=== PATIENT | male | born 1935 | race Caucasian/White ===

== ENCOUNTER 2019-01-16 08:04 | Observation (INO) | payer MEDICARE, OTHER ==
[2019-01-16] MEDS ORDERED: ALBUTEROL SULFATE 0.083% NEB 2.5 MG/3 ML AMPUL NEB ONE (08:13)
[2019-01-16] MEDS ORDERED: IPRATROPIUM BROMIDE 0.02% NEB 0.5 MG/2.5 ML AMPUL NEB ONE (08:14)
[2019-01-16 08:28] LABS: ABSOLUTE MONOCYTES (AUTO) 0.2 10^3/uL (0.1-1.4); ABSOLUTE NEUT (AUTO) 6.5 10^3/uL (1.7-8.2); BASOPHILS % (AUTO) 0.4 % (0-2); EOSINOPHILS % (AUTO) 0.2 % (0-6); HEMATOCRIT 37.6 % (37.9-51.0); HEMOGLOBIN 12.6 g/dL (13.5-17.0); LYMPHOCYTES % (AUTO) 12.8 % (13-45); MEAN CORPUSCULAR HEMOGLOBIN 30.8 pg (27.0-33.4); MEAN CORPUSCULAR HGB CONC 33.6 g/dL (32.0-36.0); MEAN CORPUSCULAR VOLUME 92 fl (80-97); MONOCYTES % (AUTO) 3.2 % (3-13); PLATELET COUNT 138 10^3/uL (150-450); RED CELL DISTRIBUTION WIDTH 13.7 % (11.5-14.0); SEGMENTED NEUTROPHILS % (AUTO) 83.4 % (42-78); TOTAL CELLS COUNTED % (AUTO) 100 %; WHITE BLOOD COUNT 7.8 10^3/uL (4.0-10.5)
[2019-01-16 08:34] LABS: VENOUS BLOOD BASE EXCESS -2.2 mmol/L; VENOUS BLOOD HCO3 26.9 mmol/L (20-32); VENOUS BLOOD PH 7.22 (7.30-7.42)
[2019-01-16] MEDS ORDERED: FUROSEMIDE INJ/PF 40 MG/4 ML SDV IV ONE (08:34)
[2019-01-16 08:36] LABS: VENOUS BLOOD PCO2 66.7 mmHg (35-63)
[2019-01-16 08:55] LABS: ALKALINE PHOSPHATASE 122 U/L (38-126); ANION GAP 8 (5-19); ASPARTATE AMINO TRANSFERASE 45 U/L (17-59); BILIRUBIN,DIRECT 0.3 mg/dL (0.0-0.4); BILIRUBIN,TOTAL 0.3 mg/dL (0.2-1.3); BLOOD UREA NITROGEN 14 mg/dL (7-20); CALCIUM 8.8 mg/dL (8.4-10.2); CARBON DIOXIDE 28 mmol/L (22-30); CHLORIDE 103 mmol/L (98-107); CREATINE KINASE 149 U/L (55-170); GLUCOSE 172 mg/dL (75-110); POTASSIUM 5.1 mmol/L (3.6-5.0); TOTAL PROTEIN 7.1 g/dL (6.3-8.2)
[2019-01-16 09:08] LABS: CREATINE KINASE MB 4.14 ng/mL (<4.55)
[2019-01-16 09:16] LABS: TROPONIN I 0.446 ng/mL
[2019-01-16] MEDS ORDERED: ASPIRIN 325 MG TABLET PO ONE (09:25)
--- NOTE | 2019-01-16 09:30 | ER Document Report ---
ED General - General Chief Complaint: Shortness Of Breath Stated Complaint: DIFFICULTY BREATHING Time Seen by Provider: 01/16/19 08:09 - HPI Notes: Patient presents with onset of shortness of breath that started last night. He was seen by EMS and provided albuterol treatment and felt better and then this morning felt worse so came to the hospital. He denies any chest pain recent cough congestion fevers or illnesses. His daughter at bedside states that he is not taking his furosemide because he ran out for several days. He does have a history of CHF, COPD, and kidney disease - Related Data Allergies/Adverse Reactions: pseudoephedrine [From Sudafed] Allergy (Verified 01/16/19 08:25) Past Medical History - Social History Smoking Status: Former Smoker Family History: Reviewed & Not Pertinent Patient has suicidal ideation: No Patient has homicidal ideation: No Pulmonary Medical History: Reports: Hx COPD Review of Systems - Review of Systems Constitutional: No symptoms reported EENT: No symptoms reported Cardiovascular: No symptoms reported Respiratory: See HPI Gastrointestinal: No symptoms reported Genitourinary: No symptoms reported Male Genitourinary: No symptoms reported Musculoskeletal: No symptoms reported Skin: No symptoms reported Hematologic/Lymphatic: No symptoms reported Neurological/Psychological: No symptoms reported Physical Exam - Vital signs Vitals: Resp Pulse Ox 20 94 01/16/19 08:11 01/16/19 08:11 - General General appearance: Other - Mild distress - HEENT Head: Normocephalic, Atraumatic - Respiratory Respiratory status: Respiratory distress - Coarse breath sounds bilaterally - Cardiovascular Rhythm: Tachycardia Heart sounds: Normal auscultation - Abdominal Inspection: Normal Distension: Other - Obese abdomen with reducible umbilical hernia - Extremities General upper extremity: Normal inspection General lower extremity: Other - No bilateral pitting edema - Neurological Neuro grossly intact: Yes Cognition: Normal Orientation: AAOx4 Course - Re-evaluation Re-evalutation: 01/16/19 09:[address] Parikh due to elevated troponin. Patient does have a history of CHF no baseline labs in this EMR. He does not have any chest pain. I contacted at this time and stated that patient can be admitted he can be consulted if necessary aspirin provided 01/16/19 09:41 Patient will be admitted at this time - Vital Signs Vital signs: Temp Pulse Resp BP Pulse Ox 98.1 F 99 20 148/61 H 92 01/17/19 11:46 08/30/19 11:46 01/17/19 11:46 01/17/19 11:46 01/17/19 11:46 - Laboratory Result Diagrams: 01/17/19 05:33 01/17/19 05:33 Laboratory results interpreted by me: 01/16/19 01/16/19 01/16/19 08:12 08:12 08:12 RBC 4.10 L Hgb 12.6 L Hct 37.6 L Plt Count 138 L Lymph % (Auto) 12.8 L Seg Neutrophils % 83.4 H VBG pH VBG pCO2 Potassium 5.1 H Creatinine 1.36 H Est GFR (MDRD) Non-Af 50 L Glucose 172 H NT-Pro-B Natriuret Pep 820 H Urine Protein Urine Blood 01/16/19 01/16/19 08:12 09:34 RBC Hgb Hct Plt Count Lymph % (Auto) Seg Neutrophils % VBG pH 7.22 L VBG pCO2 66.7 H* Potassium Creatinine Est GFR (MDRD) Non-Af Glucose NT-Pro-B Natriuret Pep Urine Protein 30 H Urine Blood SMALL H Discharge - Discharge Clinical Impression: Shortness of breath, COPD exacerbation Condition: Stable Disposition: ADMITTED INPATIENT Admitting Provider: Santa (Hospitalist) Unit Admitted: Telemetry
--- NOTE | 2019-01-16 09:34 | RADIOLOGY REPORT (SQ) ---
EXAM DESCRIPTION: CHEST SINGLE VIEW COMPLETED DATE/TIME: 01/16/2019 8:50 am REASON FOR STUDY: bed 4 db COMPARISON: None. EXAM PARAMETERS: NUMBER OF VIEWS: One view. TECHNIQUE: Single frontal radiographic view of the chest acquired. RADIATION DOSE: NA LIMITATIONS: None. FINDINGS: LUNGS AND PLEURA: No opacities, masses or pneumothorax. Probable emphysematous change. N o pleural effusion. MEDIASTINUM AND HILAR STRUCTURES: No masses. Contour normal. HEART AND VASCULAR STRUCTURES: Cardiomegaly. BONES: No acute findings. HARDWARE: None in the chest. OTHER: No other significant finding. IMPRESSION: Cardiomegaly. Probable emphysematous change without acute abnormality of the lungs. No focal airspace opacity. TECHNICAL DOCUMENTATION: JOB ID: [id number] [id number] [id number] you- All Rights Reserved Reading location - IP/workstation name: [email or web address]
[2019-01-16] MEDS ORDERED: LEVOFLOXACIN 750 MG TABLET PO ONE (09:41)
[2019-01-16 09:50] LABS: APPEARANCE,URINE CLEAR; BILIRUBIN,URINE NEGATIVE (NEGATIVE); COLOR,URINE YELLOW; GLUCOSE, URINE NEGATIVE (NEGATIVE); KETONES,URINE NEGATIVE (NEGATIVE); LEUKOCYTE ESTERASE,URINE NEGATIVE (NEGATIVE); NITRITE,URINE NEGATIVE (NEGATIVE); PROTEIN,URINE 30 mg/dL (NEGATIVE); URINE SPECIFIC GRAVITY 1.013; UROBILINOGEN,URINE NEGATIVE mg/dL (<2.0)
[2019-01-16] MEDS ORDERED: LEVALBUTEROL HCL NEB 1.25 MG/3 ML AMPUL NEB PRN (10:24)
[2019-01-16] MEDS ORDERED: PROMETHAZINE HCL INJ 25 MG/1 ML VIAL IV PRN (10:24)
[2019-01-16] MEDS ORDERED: ACETAMINOPHEN 325 MG TABLET PO PRN (10:24)
[2019-01-16] MEDS ORDERED: MAG HYDROX/AL HYDROX/SIMETH SUSP 30 ML UDCUP PO PRN (10:24)
[2019-01-16] MEDS ORDERED: ONDANSETRON HCL INJ/PF 4 MG/2 ML SDV IV PRN (10:24)
[2019-01-16 11:08] LABS: ARTERIAL BLOOD BASE EXCESS -2.2 mmol/L; ARTERIAL BLOOD H2CO3 1.15 mmol/L (1.05-1.35); ARTERIAL BLOOD HCO3 22.5 mmol/L (20-24); ARTERIAL BLOOD O2 SATURATION 98.7 % (94-98); ARTERIAL BLOOD PCO2 38.3 mmHg (35-45); ARTERIAL BLOOD PH 7.39 (7.35-7.45); ARTERIAL BLOOD PO2 136.3 mmHg (80-100); ARTERIAL BLOOD TOTAL CO2 23.6 mmol/L (23-27)
[2019-01-16 11:09] LABS: ARTERIAL BLOOD FIO2 40%
--- NOTE | 2019-01-16 12:46 | EKG REPORT ---
SEVERITY:- ABNORMAL ECG - SINUS TACHYCARDIA NONSPECIFIC REPOL ABNORMALITY, LATERAL LEADS : Confirmed by: Gregory Madrigal MD 16-Jan-2019 12:45:21
[2019-01-16] MEDS ORDERED: HEPARIN SOD (PORCINE) 5,000 UNIT/ML 1 ML VIAL SUBCUT SCH (14:00)
[2019-01-16] MEDS ORDERED: METHYLPREDNISOLONE INJ 40 MG/1 ML SDV IV SCH (14:00)
[2019-01-16] MEDS: IPRATROPIUM/ALBUTEROL 0.5-2.5 MG/3 ML AMPUL NEB SCH ×2 (14:08→20:03)
[2019-01-16] MEDS ORDERED: MOMETASONE FUROATE IH PRN (14:27)
[2019-01-16] MEDS ORDERED: BENZOCAINE/MENTHOL SORE THROAT LOZENGE BUCCAL PRN (17:32)
[2019-01-16] MEDS: TORSEMIDE 20 MG TABLET PO SCH (18:48)
[2019-01-16] MEDS: POTASSIUM CHLORIDE 10 MEQ CAPSULE.ER PO SCH (18:48)
--- NOTE | 2019-01-16 19:53 | PDOC H&P ---
History of Present Illness Admission Date/PCP: 01/16/19 09:46 CHARLENE DEE MD Patient complains of: Shortness of breath History of Present Illness: LISA AMIN is a 83 year old male with a past medical history significant for COPD, CHF, CKD, BPH, vascular dementia, arthritis, and macular degeneration who presented to the emergency department today with complaint of sudden onset of shortness of breath last night not responsive to home nebulizer treatments. The patient's daughter reports that he has run out of his torsemide approximately 4 days ago. Evaluation in the emergency department revealed hypoxia on room air, tachycardia, tachypnea, unremarkable CBC, acceptable ABG while on BiPAP, slightly elevated potassium at 5.1 and creatinine of 1.36, proBNP of 820, and indeterminately elevated troponins at 0.446 that have trended up to a peak of 1.120 this evening. Prior to admission the patient was cleared with Dr. Jones as he was chest pain-free without EKG changes. Urinalysis was normal, chest x-ray was benign, and EKG demonstrated sinus tachycardia without ST segment or ischemic changes. He was provided IV furosemide, supplemental oxygen, Solu-Medrol, nebulizer treatments and placed on BiPAP. At the time of my assessment, the patient was resting comfortably while lying supine on BiPAP. He has been referred to the hospitalist service for admission and management of acute respiratory failure with hypoxia secondary to mild CHF and COPD exacerbations. Past Medical History Cardiac Medical History: Reports: Congestive Heart Failure, Coronary Artery Disease Pulmonary Medical History: Reports: Chronic Obstructive Pulmonary Disease (COPD) EENT Medical History: Reports: Other - Macular degeneration Neurological Medical History: Denies: Ischemic CVA Endocrine Medical History: Reports: Obesity Renal/ Medical History: Reports: Chronic Kidney Disease GI Medical History: Reports: Gastroesophageal Reflux Disease Musculoskeltal Medical History: Reports: Arthritis Traumatic Medical History: Reports: None Hematology: Reports: None Infectious Medical History: Reports: None Past Surgical History Past Surgical History: Reports: Orthopedic Surgery Social History Information Source: Patient, Relative Lives with: Family Smoking Status: Former Smoker Number of Years Smokin Frequency of Alcohol Use: None Hx Recreational Drug Use: No Drugs: None Hx Prescription Drug Abuse: No - Advance Directive Resuscitation Status: Do Not Resuscitate Surrogate healthcare decision maker:: The patient's daughter, Christal Julian, Family History Family History: Reviewed & Not Pertinent Parental Family History Reviewed: Yes Children Family History Reviewed: Yes Sibling(s) Family History Reviewed.: Yes Medication/Allergy Home Medications: Albuterol Sulfate [Proair HFA Inhalation Aerosol 8.5 gm MDI] 2 puff IH Q6HP PRN 01/16/19 Albuterol Sulfate [Ventolin 0.083% Neb 2.5 mg/3 mL Ampul] 1 vial NEB Q6HP PRN 01/16/19 Aspirin [Ecotrin 81 mg EC Tablet] 81 mg PO DAILY 01/16/19 Budesonide/Formoterol Fumarate [Symbicort HFA 160-4.5 mcg Inhaler 6 gm] 2 puff IH Q12 01/16/19 Calcium Carbonate/Vitamin D3 [Calcium 500 mg-Vit D3 600 Unit] 1 tab PO DAILY 01/16/19 Doxazosin Mesylate [Cardura 2 mg Tablet] 2 mg PO DAILY 01/16/19 Finasteride [Proscar 5 mg Tablet] 5 mg PO DAILY 01/16/19 Folic Acid [Folvite 1 mg Tablet] 1 mg PO DAILY 01/16/19 Guaifenesin [Mucinex] 600 mg PO Q12 01/16/19 Magnesium Oxide [Mag-Ox 400 mg Tablet] 400 mg PO DAILY 01/16/19 Melatonin [Melatonin 3 mg Tablet] 3 mg PO QHS 01/16/19 Mometasone Furoate [Nasonex] 1 puff IH BIDP PRN 01/16/19 [place]-3 Acid Ethyl Esters [Lovaza 1 gm Capsule] 1 gm PO DAILY 01/16/19 Potassium Chloride [Klor-Con 10 Meq Capsule ER] 10 mg PO BID 01/16/19 Pyridoxine HCl (Vitamin B6) [Vitamin B-6] 50 mg PO QHS 01/16/19 Rosuvastatin Calcium [Crestor 20 mg Tablet] 20 mg PO QHS 01/16/19 Tiotropium [place] [Spiriva Handihaler 5 Cap/Kit (18 Mcg/Cap)] 1 spray NASL DAILY 01/16/19 Torsemide [Demadex 20 mg Tablet] 40 mg PO BID 01/16/19 Allergies/Adverse Reactions: pseudoephedrine [From Sudafed] Allergy (Verified 01/16/19 08:25) Review of Systems Constitutional: ABSENT: chills, fever(s), headache(s), weight gain, weight loss Eyes: ABSENT: visual disturbances Ears: ABSENT: hearing changes Cardiovascular: PRESENT: dyspnea on exertion, orthropnea. ABSENT: chest pain, edema, palpitations Respiratory: PRESENT: dyspnea. ABSENT: cough, hemoptysis Gastrointestinal: ABSENT: abdominal pain, constipation, diarrhea, hematemesis, hematochezia, nausea, vomiting Genitourinary: ABSENT: dysuria, hematuria Musculoskeletal: ABSENT: joint swelling Integumentary: ABSENT: rash, wounds Neurological: ABSENT: abnormal gait, abnormal speech, confusion, dizziness, focal weakness, syncope Psychiatric: ABSENT: anxiety, depression, homidical ideation, suicidal ideation Endocrine: ABSENT: cold intolerance, heat intolerance, polydipsia, polyuria Hematologic/Lymphatic: ABSENT: easy bleeding, easy bruising Physical Exam Vital Signs: Temp Pulse Resp BP Pulse Ox 97.5 F 110 H 24 H 159/64 H 95 01/16/19 15:52 01/16/19 19:00 01/16/19 18:13 01/16/19 15:52 01/16/19 18:13 Intake & Output 01/15/19 01/16/19 01/17/19 06:59 06:59 06:59 Intake Total 480 Output Total 950 Balance -470 Weight 92.986 kg General appearance: PRESENT: no acute distress, cooperative, obese, well- developed, well-nourished Head exam: PRESENT: atraumatic, normocephalic Eye exam: PRESENT: conjunctiva pink, EOMI, PERRLA. ABSENT: scleral icterus Ear exam: PRESENT: normal external ear exam Mouth exam: PRESENT: moist, tongue midline Neck exam: ABSENT: carotid bruit, JVD, lymphadenopathy, thyromegaly Respiratory exam: PRESENT: clear to auscultation jhony, prolonged expiratory phas, symmetrical, unlabored, other - On BiPAP. ABSENT: rales, rhonchi, wheezes Cardiovascular exam: PRESENT: RRR, +S1, +S2, systolic murmur. ABSENT: diastolic murmur, rubs Pulses: PRESENT: normal dorsalis pedis pul Vascular exam: PRESENT: normal capillary refill GI/Abdominal exam: PRESENT: normal bowel sounds, soft. ABSENT: distended, guarding, mass, organolmegaly, rebound, tenderness Rectal exam: PRESENT: deferred Extremities exam: PRESENT: full ROM. ABSENT: calf tenderness, clubbing, pedal edema, +1 edema Neurological exam: PRESENT: alert, awake, oriented to person, oriented to place, oriented to situation, CN II-XII grossly intact, other - Defers to his daughter for answers of most questions;conversational and socially appropriate. ABSENT: oriented to time, motor sensory deficit Psychiatric exam: PRESENT: appropriate affect, normal mood. ABSENT: homicidal ideation, suicidal ideation Skin exam: PRESENT: dry, intact, warm. ABSENT: cyanosis, rash Results Laboratory Results: 01/16/19 08:12 01/16/19 08:12 01/16/19 01/16/19 01/16/19 08:12 08:12 08:12 WBC 7.8 RBC 4.10 L Hgb 12.6 L Hct 37.6 L MCV 92 MCH 30.8 MCHC 33.6 RDW 13.7 Plt Count 138 L Seg Neutrophils % 83.4 H Carbonic Acid HCO3/H2CO3 Ratio ABG pH ABG pCO2 ABG pO2 ABG HCO3 ABG O2 Saturation ABG Base Excess VBG pH 7.22 L VBG pCO2 66.7 H* VBG HCO3 26.9 VBG Base Excess -2.2 FiO2 Sodium 139.0 Potassium 5.1 H Chloride 103 Carbon Dioxide 28 Anion Gap 8 BUN 14 Creatinine 1.36 H Est GFR ( Amer) > 60 Glucose 172 H Calcium 8.8 Magnesium 2.1 Total Bilirubin 0.3 AST 45 Alkaline Phosphatase 122 Total Protein 7.1 Albumin 4.0 Urine Color Urine Appearance Urine pH Ur Specific [place] Urine Protein Urine Glucose (UA) Urine Ketones Urine Blood Urine Nitrite Ur Leukocyte Esterase Urine WBC (Auto) Urine RBC (Auto) 01/16/19 01/16/19 09:34 10:34 WBC RBC Hgb Hct MCV MCH MCHC RDW Plt Count Seg Neutrophils % Carbonic Acid 1.15 HCO3/H2CO3 Ratio 19:1 ABG pH 7.39 ABG pCO2 38.3 ABG pO2 136.3 H ABG HCO3 22.5 ABG O2 Saturation 98.7 H ABG Base Excess -2.2 VBG pH VBG pCO2 VBG HCO3 VBG Base Excess FiO2 40% Sodium Potassium Chloride Carbon Dioxide Anion Gap BUN Creatinine Est GFR ( Amer) Glucose Calcium Magnesium Total Bilirubin AST Alkaline Phosphatase Total Protein Albumin Urine Color YELLOW Urine Appearance CLEAR Urine pH 5.0 Ur Specific [place] 1.013 Urine Protein 30 H Urine Glucose (UA) NEGATIVE Urine Ketones NEGATIVE Urine Blood SMALL H Urine Nitrite NEGATIVE Ur Leukocyte Esterase NEGATIVE Urine WBC (Auto) 1 Urine RBC (Auto) 1 01/16/19 01/16/19 01/16/19 08:12 08:12 11:56 Creatine Kinase 149 CK-MB (CK-2) 4.14 Troponin I 0.446 1.110 NT-Pro-B Natriuret Pep 820 H 01/16/19 18:20 Creatine Kinase CK-MB (CK-2) Troponin I 1.120 NT-Pro-B Natriuret Pep Impressions: Chest X-Ray 01/16/19 08:07 IMPRESSION: Cardiomegaly. Probable emphysematous change without acute abnormality of the lungs. No focal airspace opacity. Assessment and Plan - Diagnosis (1) Acute respiratory failure with hypoxia Is this a current diagnosis for this admission?: Yes Plan: Secondary to mild CHF exacerbation and COPD exacerbation. Patient's daughter confirms that he has missed several days of torsemide therapy. Patient reports that he is feeling much better following receipt of Solu-Medrol, nebulizer treatments, IV furosemide at night, and placement on BiPAP. Patient is admitted to the medical floor on continuous cardiac telemetry. Continue supplemental oxygen and BiPAP as needed to maintain saturations 89 to 92%. Resume home medication regiment for management of CHF. Scheduled and as needed nebulizer treatments. (2) CHF (congestive heart failure) Is this a current diagnosis for this admission?: Yes Plan: Patient endorses a history of CHF. Likely diastolic given cardiomegaly noted on chest x-ray. He is received IV furosemide by the ED provider. Have resumed the patient's home dose Cardura, torsemide, aspirin and statin therapy. He is placed on a cardiac diet. Daily weights. Patient educator is consulted. (3) COPD exacerbation Is this a current diagnosis for this admission?: Yes Plan: Patient is empirically placed on p.o. Levaquin for treatment of COPD exacerbation/bronchitis. He is provided supplemental oxygen and BiPAP as needed to maintain saturations 89 to 92%. Start scheduled and as needed nebulizer treatments. Solu-Medrol 40 mg every 8 hours. Mucinex twice daily. (4) Obesity (BMI 30.0-34.9) Is this a current diagnosis for this admission?: Yes Plan: BMI of 30.3. Patient is placed on a cardiac diet. Dietary discretion is advised. - Time Time Spent with patient: 35 or more minutes Medications reviewed and adjusted accordingly: Yes Anticipated discharge: Home with Homehealth Within: within 24 hours
[2019-01-16] MEDS: GUAIFENESIN 600 MG TABLET.SA PO SCH (21:18)
[2019-01-16] MEDS: ENOXAPARIN SODIUM INJ 100 MG/1 ML DISP.SYRIN SUBCUT SCH (21:19)
[2019-01-16] MEDS ORDERED: MELATONIN 3 MG TABLET PO SCH (22:00)
[2019-01-16] MEDS ORDERED: (PENDING PHARMACY ID) (Rosuvastatin Calcium [Crestor 20 Mg Tablet] 20 MG) PO SCH (22:00)
[2019-01-16] MEDS ORDERED: PYRIDOXINE HCL 50 MG TABLET PO SCH (22:00)
[2019-01-16] MEDS ORDERED: (PENDING PHARMACY ID) (Guaifenesin [Mucinex] 600 MG) PO SCH (22:00)
[2019-01-16] MEDS ORDERED: ATORVASTATIN CALCIUM 40 MG TABLET PO SCH (22:00)
[2019-01-17] MEDS: IPRATROPIUM/ALBUTEROL 0.5-2.5 MG/3 ML AMPUL NEB SCH ×4 (02:17→19:51)
[2019-01-17] MEDS: METHYLPREDNISOLONE INJ 40 MG/1 ML SDV IV SCH ×2 (03:10→09:39)
[2019-01-17 06:31] LABS: HEMATOCRIT 36.1 % (37.9-51.0); HEMOGLOBIN 12.2 g/dL (13.5-17.0); MEAN CORPUSCULAR HEMOGLOBIN 30.5 pg (27.0-33.4); MEAN CORPUSCULAR HGB CONC 33.8 g/dL (32.0-36.0); MEAN CORPUSCULAR VOLUME 90 fl (80-97); PLATELET COUNT 145 10^3/uL (150-450); RED BLOOD COUNT 3.99 10^6/uL (4.35-5.55); WHITE BLOOD COUNT 12.1 10^3/uL (4.0-10.5)
[2019-01-17 06:54] LABS: ANION GAP 12 (5-19); BLOOD UREA NITROGEN 21 mg/dL (7-20); CALCIUM 9.3 mg/dL (8.4-10.2); CARBON DIOXIDE 27 mmol/L (22-30); CHLORIDE 100 mmol/L (98-107); GLUCOSE 152 mg/dL (75-110); POTASSIUM 4.4 mmol/L (3.6-5.0)
[2019-01-17] MEDS: GUAIFENESIN 600 MG TABLET.SA PO SCH (09:34)
[2019-01-17] MEDS: TORSEMIDE 20 MG TABLET PO SCH ×2 (09:36→17:45)
[2019-01-17] MEDS: POTASSIUM CHLORIDE 10 MEQ CAPSULE.ER PO SCH ×2 (09:38→17:45)
[2019-01-17] MEDS: ENOXAPARIN SODIUM INJ 100 MG/1 ML DISP.SYRIN SUBCUT SCH (09:41)
[2019-01-17] MEDS ORDERED: ASPIRIN 81 MG TABLET, CHEWABLE PO SCH (10:00)
[2019-01-17] MEDS ORDERED: CALCIUM CARBONATE 500 MG TABLET PO SCH (10:00)
[2019-01-17] MEDS ORDERED: MAGNESIUM OXIDE 400 MG TABLET PO SCH (10:00)
[2019-01-17] MEDS ORDERED: DOCUSATE SODIUM 100 MG CAPSULE PO SCH (10:00)
[2019-01-17] MEDS ORDERED: CALCIUM CARBONATE 250 MG/VITAMIN D3 125 UNIT TABLET PO SCH (10:00)
[2019-01-17] MEDS ORDERED: LEVOFLOXACIN 750 MG TABLET PO SCH (10:00)
[2019-01-17] MEDS ORDERED: [UNRECOGNIZED DRUG - OTHER] PO SCH (10:00)
[2019-01-17] MEDS ORDERED: FOLIC ACID 1 MG TABLET PO SCH (10:00)
[2019-01-17] MEDS ORDERED: OMEGA-3 ACID ETHYL ESTERS 1 GM CAPSULE PO SCH (10:00)
[2019-01-17] MEDS ORDERED: FINASTERIDE 5 MG TABLET PO SCH (10:00)
[2019-01-17] MEDS ORDERED: VITAMIN D3 PO SCH (10:00)
[2019-01-17] MEDS ORDERED: DOXAZOSIN MESYLATE 2 MG TABLET PO SCH (10:00)
[2019-01-17] MEDS ORDERED: CALCIUM CARBONATE PO SCH (10:00)
[2019-01-17] MEDS ORDERED: FLUTICASONE NASAL SPRAY 50 MCG/SPRY 120 SPRAY/16 GM NASL SCH (10:00)
[2019-01-17 15:33] VITALS: BP 167/65
[2019-01-17] MEDS ORDERED: METHYLPREDNISOLONE INJ 40 MG/1 ML SDV IV SCH (22:00)
--- NOTE | 2019-01-19 17:51 | PDOC DISCHARGE SUMMARY ---
General - Admit/Disc Date/PCP Admission Date/Primary Care Provider: 01/16/19 09:46 CHARLENE DEE MD Discharge Date: 01/17/19 - Discharge Diagnosis (1) Acute respiratory failure with hypoxia Is this a current diagnosis for this admission?: Yes (2) CHF (congestive heart failure) Is this a current diagnosis for this admission?: Yes (3) COPD exacerbation Is this a current diagnosis for this admission?: Yes (4) Obesity (BMI 30.0-34.9) Is this a current diagnosis for this admission?: Yes - Additional Information Resuscitation Status: Do Not Resuscitate Discharge Diet: Cardiac Discharge Activity: Activity As Tolerated, Balance Activity w/Rest, Weigh Daily Prescriptions: Prednisone [Deltasone 20 mg Tablet] 60 mg PO DAILY #12 tablet Torsemide [Demadex 20 mg Tablet] 40 mg PO BID #120 Home Medications: Albuterol Sulfate [Proair HFA Inhalation Aerosol 8.5 gm MDI] 2 puff IH Q6HP PRN 01/16/19 Albuterol Sulfate [Ventolin 0.083% Neb 2.5 mg/3 mL Ampul] 1 vial NEB Q6HP PRN 01/16/19 Aspirin [Ecotrin 81 mg EC Tablet] 81 mg PO DAILY 01/16/19 Budesonide/Formoterol Fumarate [Symbicort HFA 160-4.5 mcg Inhaler 6 gm] 2 puff IH Q12 01/16/19 Calcium Carbonate/Vitamin D3 [Calcium 500 mg-Vit D3 600 Unit] 1 tab PO DAILY 01/16/19 Doxazosin Mesylate [Cardura 2 mg Tablet] 2 mg PO DAILY 01/16/19 Finasteride [Proscar 5 mg Tablet] 5 mg PO DAILY 01/16/19 Folic Acid [Folvite 1 mg Tablet] 1 mg PO DAILY 01/16/19 Guaifenesin [Mucinex] 600 mg PO Q12 01/16/19 Magnesium Oxide [Mag-Ox 400 mg Tablet] 400 mg PO DAILY 01/16/19 Melatonin [Melatonin 3 mg Tablet] 3 mg PO QHS 01/16/19 Mometasone Furoate [Nasonex] 1 puff IH BIDP PRN 01/16/19 [place]-3 Acid Ethyl Esters [Lovaza 1 gm Capsule] 1 gm PO DAILY 01/16/19 Potassium Chloride [Klor-Con 10 Meq Capsule ER] 10 mg PO BID 01/16/19 Pyridoxine HCl (Vitamin B6) [Vitamin B-6] 50 mg PO QHS 01/16/19 Rosuvastatin Calcium [Crestor 20 mg Tablet] 20 mg PO QHS 01/16/19 Tiotropium [place] [Spiriva Handihaler 5 Cap/Kit (18 Mcg/Cap)] 1 spray NASL DAILY 01/16/19 Acetaminophen [Tylenol 325 mg Tablet] 650 mg PO Q4HP PRN tablet 01/17/19 Aspirin [Aspirin 81 mg Chewable Tablet] 81 mg PO DAILY tab.chew 01/17/19 Prednisone [Deltasone 20 mg Tablet] 60 mg PO DAILY #12 tablet 01/17/19 Torsemide [Demadex 20 mg Tablet] 40 mg PO BID #120 01/17/19 History of Present Illness History of Present Illness: LISA AMIN is a 83 year old male with a past medical history significant for COPD, CHF, CKD, BPH, vascular dementia, arthritis, and macular degeneration who presented to the emergency department today with complaint of sudden onset of shortness of breath last night not responsive to home nebulizer treatments. The patient's daughter reports that he has run out of his torsemide approximately 4 days ago. Evaluation in the emergency department revealed hypoxia on room air, tachycardia, tachypnea, unremarkable CBC, acceptable ABG while on BiPAP, slightly elevated potassium at 5.1 and creatinine of 1.36, proBNP of 820, and indeterminately elevated troponins at 0.446 that have trended up to a peak of 1.120 this evening. Prior to admission the patient was cleared with Dr. Jones as he was chest pain-free without EKG changes. Urinalysis was normal, chest x-ray was benign, and EKG demonstrated sinus tachycardia without ST segment or ischemic changes. He was provided IV furosemide, supplemental oxygen, Solu-Medrol, nebulizer treatments and placed on BiPAP. At the time of my assessment, the patient was resting comfortably while lying supine on BiPAP. He has been referred to the hospitalist service for admission and management of acute respiratory failure with hypoxia secondary to mild CHF and COPD exacerbations. Hospital Course Hospital Course: The patient was admitted to the medical floor on continuous cardiac telemetry. Patient's daughter had reported that he ran out of his torsemide proximately 4- day prior to his presentation with respiratory distress. He briefly received IV furosemide and then was transitioned to his home dose torsemide. He was supported with supplemental oxygen and BiPAP overnight. He was additionally treated for COPD exacerbation due to rhonchi and wheezing noted by the EMS personnel with a scheduled and as needed nebulizer treatments and p.o. prednisone. There were no indications for antibiotic therapy. By the following morning, the patient was asymptomatic, with clear lung sounds, and ambulatory on room air. He is requesting to be discharged home today. He is discharged to home in the care of family members. I have arranged for home health nursing for disease and medication education and management (specifically management of CHF) and physical therapy services. He is discharged home with prescriptions for prednisone and a one-month refill of his torsemide. Family members report they do not need any other refills at this time. He is advised to follow-up with his primary care provider within 1 week. He is instructed to take his medications as prescribed, eat a low-sodium diet, and weigh himself daily. He is encouraged to return to the emergency department as needed for concerning symptoms. Physical Exam Vital Signs: Temp Pulse Resp BP Pulse Ox 97.8 F 82 16 167/65 H 94 01/17/19 18:25 01/17/19 19:51 01/17/19 19:51 01/17/19 18:25 01/17/19 19:51 Intake & Output 01/18/19 01/19/19 01/20/19 06:59 06:59 06:59 Intake Total 866 Output Total 200 Balance 666 General appearance: PRESENT: no acute distress, cooperative, well-developed, well-nourished - Overweight Head exam: PRESENT: atraumatic, normocephalic Eye exam: PRESENT: conjunctiva pink, EOMI, PERRLA. ABSENT: scleral icterus Ear exam: PRESENT: normal external ear exam Mouth exam: PRESENT: moist, tongue midline Neck exam: ABSENT: carotid bruit, JVD, lymphadenopathy, thyromegaly Respiratory exam: PRESENT: clear to auscultation jhony, prolonged expiratory phas, symmetrical, unlabored, other - Room air. ABSENT: rales, rhonchi, wheezes Cardiovascular exam: PRESENT: RRR, +S1, +S2. ABSENT: diastolic murmur, rubs, systolic murmur Pulses: PRESENT: normal dorsalis pedis pul Vascular exam: PRESENT: normal capillary refill GI/Abdominal exam: PRESENT: normal bowel sounds, soft. ABSENT: distended, guard ing, mass, organolmegaly, rebound, tenderness Rectal exam: PRESENT: deferred Extremities exam: PRESENT: full ROM. ABSENT: calf tenderness, clubbing, pedal edema Musculoskeletal exam: PRESENT: ambulatory - On room air Neurological exam: PRESENT: alert, awake, oriented to person, oriented to place, oriented to time, oriented to situation, CN II-XII grossly intact. ABSENT: motor sensory deficit Psychiatric exam: PRESENT: appropriate affect, normal mood. ABSENT: homicidal ideation, suicidal ideation Skin exam: PRESENT: dry, intact, warm. ABSENT: cyanosis, rash Results Laboratory Results: 01/17/19 05:33 01/17/19 05:33 01/16/19 01/16/19 01/16/19 08:12 08:12 11:56 Creatine Kinase 149 CK-MB (CK-2) 4.14 Troponin I 0.446 1.110 NT-Pro-B Natriuret Pep 820 H 01/16/19 01/17/19 18:20 12:53 Creatine Kinase CK-MB (CK-2) Troponin I 1.120 0.914 NT-Pro-B Natriuret Pep Impressions: Chest X-Ray 01/16/19 08:07 IMPRESSION: Cardiomegaly. Probable emphysematous change without acute abnormality of the lungs. No focal airspace opacity. Qualifiers - * PATIENT BEING DISCHARGED WITH ANY OF THE FOLLOWING DIAGNOSIS: No Acute Heart Failure - Is this a Heart Failure Patient?: Yes Documentation of LVEF assessment?: Planned for after discharge LVEF < 40%?: No- if no continue to question #3 3. Anticoagulant therapy for permanect/persistent/paraoxysmal Afib or Aflutter: N/A Plan Discharge Plan: Patient is discharged to home with home health Nursing and physical therapy services. He is instructed to follow up with primary care provider within 1 week. Take medications as prescribed. Weigh daily and report any weight gain of more than 2 pounds to doctor. Eat a low sodium diet. Return to the emergency department as needed for concerning symptoms. Time Spent: Greater than 30 Minutes
== END 2019-01-17 20:32 | disposition home or self-care (01) ==
LOC: ER 08:04 → EH 09:46 → INTOOBSV 09:46 → 4S 13:01
PROVIDERS: ADMIT Internal Medicine; ATTEND Internal Medicine
DX: J96.01 Acute respiratory failure with hypoxia (principal); I50.9 Heart failure, unspecified; J44.1 Chronic obstructive pulmonary disease with (acute) exacerbation; E66.9 Obesity, unspecified; F01.50 Vascular dementia, unspecified severity, without behavioral disturbance, psychotic disturbance, mood disturbance, and anxiety; M19.90 Unspecified osteoarthritis, unspecified site; N18.9 Chronic kidney disease, unspecified; H35.30 Unspecified macular degeneration; I25.10 Atherosclerotic heart disease of native coronary artery without angina pectoris; K42.9 Umbilical hernia without obstruction or gangrene; N40.0 Benign prostatic hyperplasia without lower urinary tract symptoms; Z66 Do not resuscitate; Z79.82 Long term (current) use of aspirin; Z79.899 Other long term (current) drug therapy; Z87.891 Personal history of nicotine dependence; Z68.30 Body mass index [BMI] 30.0-30.9, adult; R79.89 Other specified abnormal findings of blood chemistry
CPT/HCPCS: 93005; 94640 ×3; 99285; 96374; 36415 ×2; 82553; 82803 ×2; 82550; 83735 ×2; 85025; 85027; 80048; 80053; 81001; 84484 ×2; 83880; 71045; 93010; 94660; G0378 ×3; A9270 ×25; J1940; J2920 ×2; J1650 ×2; J3490 ×2; J7620